=== PATIENT | female | born 1960 | race African-American/Black ===

== ENCOUNTER 2018-11-05 20:01 | Emergency (ER) | payer MEDICAID ==
[~2018-11-05] VITALS: Ht 160 cm; Wt 81.6 kg
[2018-11-05] MEDS ORDERED: LISINOPRIL5 MG ORAL (20:24)
[2018-11-05] MEDS ORDERED: VITAMIN D1000 UNI1 ORAL (20:25)
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
[2018-11-05 20:30] VITALS: BP 146/96
[2018-11-05] MEDS ORDERED: HYDROcodone/Acetamin 5/325 tab ORAL ONE (20:30)
--- NOTE | 2018-11-05 20:32 | NUR ---
ED Nurse Note: Patient ambulated down for CT.
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
[2018-11-05 20:53] VITALS: BP 147/95
--- NOTE | 2018-11-05 20:59 | Diagnostic Imaging Report ---
EXAM: CT Cervical Spine Without Intravenous Contrast CLINICAL HISTORY: PAIN TECHNIQUE: Axial computed tomography images of the cervical spine without intravenous contrast. CTDI is 0.25, 27.49 mGy and DLP is 580 mGy-cm. One or more of the following dose reduction techniques were used: automated exposure control, adjustment of the mA and/or kV according to patient size, use of iterative reconstruction technique. COMPARISON: No relevant prior studies available. FINDINGS: Vertebrae: No acute fracture or malalignment. Straightening of the normal cervical lordosis. Discs/spinal canal/neural foramina: Mild degenerative changes. No significant osseous spinal or foraminal stenosis. Soft tissues: Unremarkable. IMPRESSION: No acute fracture or malalignment.
--- NOTE | 2018-11-05 21:05 | Diagnostic Imaging Report ---
EXAM: CT Chest Without Intravenous Contrast CLINICAL HISTORY: PAIN TECHNIQUE: Axial computed tomography images of the chest without intravenous contrast. CTDI is 0.15, 23.44 mGy and DLP is 852 mGy-cm. One or more of the following dose reduction techniques were used: automated exposure control, adjustment of the mA and/or kV according to patient size, use of iterative reconstruction technique. COMPARISON: No relevant prior studies available. FINDINGS: Lungs: Unremarkable. No mass. No consolidation. Pleural space: No pleural effusions or consolidation. No pneumothorax. Heart: Unremarkable. No cardiomegaly. No significant pericardial effusion. Bones/joints: No acute osseous abnormality. No dislocation. Soft tissues: Subcutaneous stranding in the right anterior chest wall. Vasculature: Unremarkable. No thoracic aortic aneurysm. Lymph nodes: Unremarkable. IMPRESSION: Subcutaneous stranding in the right anterior chest wall. No pneumothorax, pleural effusions, or consolidation. No acute osseous abnormality.
--- NOTE | 2018-11-05 21:05 | NUR ---
ED Nurse Note: Patient currently resting comfortably with no s/s of acute distress. Patient requested anti nausea medication, med given and patient provided with emesis basin just in case.
[2018-11-05] MEDS ORDERED: Methocarbamol 750mg tab ORAL ONE (22:30)
[2018-11-05] MEDS ORDERED: Ketorolac 60mg Inj IM ONE (22:30)
[2018-11-05] MEDS ORDERED: ROBAXIN-750750 MG PO (22:43)
[2018-11-05] MEDS ORDERED: NORCO 5-325 TA1 EACH ORAL (22:43)
[2018-11-05] MEDS ORDERED: IBUPROFEN600 MG ORAL (22:43)
--- NOTE | 2018-11-05 22:53 | NUR ---
ED Nurse Note: Patient's ride has arrived and patient is cleared for discharge by ERMD. patient is ambulatory with steady gait, A&Ox4, has no complaints of pain and no s/s of acute distress. Patient ID band removed.
[2018-11-05 22:54] VITALS: BP 147/95
== END 2018-11-05 22:55 | disposition home or self-care (01) ==
LOC: EMR 20:30
DX: S20.211A Contusion of right front wall of thorax, initial encounter (principal); V43.52XA Car driver injured in collision with other type car in traffic accident, initial encounter; Y92.414 Local residential or business street as the place of occurrence of the external cause; M54.2 Cervicalgia; Z88.1 Allergy status to other antibiotic agents; Z91.018 Allergy to other foods
CPT/HCPCS: 71250; 72125; 96372; 99284